=== PATIENT | female | born 2000 | race Two or more races ===

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

== ENCOUNTER 2023-01-21 08:34 | Emergency (ER) | payer OTHER ==
[2023-01-21 08:41] VITALS: RESP 16; BMI 26.2
[2023-01-21] MEDS ORDERED: ONDANSETRON 4 MG/2 ML VIAL IVPUSH ONE (08:55)
[2023-01-21] MEDS ORDERED: SODIUM CHLORIDE 0.9% 500 ML INFUS.BAG IV ONE (08:55)
[2023-01-21] MEDS ORDERED: FAMOTIDINE 20 MG/50 ML IVPB 20 MG/50 ML MG IVPB ONE ×2 (09:02→09:29)
[2023-01-21] MEDS ORDERED: ACETAMINOPHEN 1000 MG/100 ML BAG IVPB ONE (09:02)
[2023-01-21 09:28] LABS: BASO % 0.3 % (0-2.0); EOS % 0.1 % (0-4.5); HEMOGLOBIN 14.6 GM/dL (10.7-15.3); LYMPH % 8.6 % (8-40); MCH 33.2 pg (25.7-33.7); MCHC 35.6 g/dl (32.0-36.0); MEAN CELL VOLUME 93.4 fl (80-96); MEAN PLT VOLUME 8.4 fl (7.5-11.1); MONO % 2.4 % (3.8-10.2); NEUT % 88.6 % (42.8-82.8); PLATELET COUNT 438 10^3/uL (134-434); RBC 4.39 M/mm3 (3.60-5.2); RDW 13.6 % (11.6-15.6); WHITE BLOOD COUNT 18.7 K/mm3 (4.0-10.0)
[2023-01-21] MEDS ORDERED: ACETAMINOPHEN INJECTION 100 ML IVPB ONE (09:29)
[2023-01-21] MEDS ORDERED: ONDANSETRON 4 MG/2 ML VIAL ONE (09:29)
[2023-01-21] MEDS ORDERED: HALOPERIDOL LACTATE 5 MG/ML IM ONE ×2 (09:52→09:54)
[2023-01-21 09:59] LABS: CALCIUM 9.5 mg/dL (8.5-10.1)
[2023-01-21 10:00] LABS: ALBUMIN 4.6 g/dl (3.4-5.0)
[2023-01-21 10:04] LABS: BILIRUBIN,TOTAL 0.7 mg/dL (0.2-1); TOT PROT 8.2 g/dl (6.4-8.2)
[2023-01-21] MEDS ORDERED: diazePAM CARPU-JECT 10 MG/2 ML DISP.SYRIN IVPUSH ONE (10:17)
[2023-01-21] MEDS ORDERED: diazePAM CARPU-JECT 10 MG/2 ML DISP.SYRIN ONE (10:33)
[2023-01-21 10:41] VITALS: TEMP 98
[2023-01-21 11:21] LABS: URINE APPEARANCE CLEAR; URINE BILIRUBIN NEGATIVE (NEGATIVE); URINE COLOR YELLOW; URINE GLUCOSE (UA) NEGATIVE (NEGATIVE); URINE KETONE NEGATIVE (NEGATIVE); URINE LEUK ESTERASE NEGATIVE (NEGATIVE); URINE NITRITE NEGATIVE (NEGATIVE); URINE PROTEIN NEGATIVE (NEGATIVE); URINE UROBILINOGEN 0.2 mg/dL (0.2-1.0)
[2023-01-21 11:29] LABS: BLOOD UREA NITROGEN 10.6 mg/dL (7-18); CREATININE 0.6 mg/dL (0.55-1.3)
[2023-01-21 12:39] VITALS: BP 103/68; PULSE 74
== END 2023-01-21 12:43 | disposition home or self-care (01) ==
LOC: JER 08:34
PROC: 3E0333Z Introduction of Anti-inflammatory into Peripheral Vein, Percutaneous Approach (ICD-10-PCS; principal; 2023-01-21)
PROC: 3E033NZ Introduction of Analgesics, Hypnotics, Sedatives into Peripheral Vein, Percutaneous Approach (ICD-10-PCS; 2023-01-21)
PROC: 3E033GC Introduction of Other Therapeutic Substance into Peripheral Vein, Percutaneous Approach (ICD-10-PCS; 2023-01-21)
PROC: 3E033GC Introduction of Other Therapeutic Substance into Peripheral Vein, Percutaneous Approach (ICD-10-PCS; 2023-01-21)
PROC: 3E023NZ Introduction of Analgesics, Hypnotics, Sedatives into Muscle, Percutaneous Approach (ICD-10-PCS; 2023-01-21)
DX: R11.2 Nausea with vomiting, unspecified (principal); R10.84 Generalized abdominal pain
CPT/HCPCS: 36415; 80053; 81003; 83690; 84703; 85025; 87086; 99284-25

== ENCOUNTER 2023-08-04 19:48 | Emergency (ER) | payer OTHER ==
[2023-08-04 19:59] VITALS: BP 101/61; PULSE 69; RESP 18; TEMP 98.8; BMI 26.2
[2023-08-04] MEDS ORDERED: KETOROLAC TROMETHAMINE 30 MG/1 ML VIAL IM ONE (20:29)
[2023-08-04] MEDS ORDERED: ACETAMINOPHEN 500 MG TABLET (FP) PO ONE (20:29)
[2023-08-04] MEDS ORDERED: ACETAMINOPHEN 500 MG TABLET (FP) ONE (20:32)
[2023-08-04] MEDS ORDERED: KETOROLAC TROMETHAMINE 30 MG/1 ML VIAL ONE (20:32)
== END 2023-08-04 20:34 | disposition home or self-care (01) ==
LOC: JERFT 19:48
PROC: 3E0233Z Introduction of Anti-inflammatory into Muscle, Percutaneous Approach (ICD-10-PCS; principal; 2023-08-04)
DX: M54.2 Cervicalgia (principal); M62.838 Other muscle spasm
CPT/HCPCS: 99284-25

== ENCOUNTER 2024-04-24 12:57 | Emergency (ER) | payer OTHER ==
[2024-04-24 13:22] VITALS: RESP 18; TEMP 98.5; BMI 29.2
[2024-04-24] MEDS: LACTATED RINGERS SOLUTION 1000 ML INFUS.BAG IV ONE (13:53)
[2024-04-24 14:43] LABS: CHLORIDE 109 mmol/L (98-107); POTASSIUM 4.6 mmol/L (3.5-5.1); SODIUM 138 mmol/L (136-145)
[2024-04-24 14:45] LABS: ANION GAP 4 mmol/L (4-13); CO2 25 mmol/L (21-32); MAGNESIUM 2.1 mg/dL (1.8-2.4)
[2024-04-24 14:46] LABS: BLOOD UREA NITROGEN 13.2 mg/dL (7-18); CALCIUM 8.4 mg/dL (8.5-10.1); GLUCOSE,RANDOM 85 mg/dL (74-106)
[2024-04-24 14:48] LABS: CREATININE 0.6 mg/dL (0.55-1.3); SGOT/AST 10 U/L (15-37); SGPT/ALT 16 U/L (13-61)
[2024-04-24 14:50] LABS: TOT PROT 7.5 g/dl (6.4-8.2)
[2024-04-24 14:51] LABS: ALK PHOS 86 U/L (45-117); BASO % 0.8 % (0-2.0); EOS % 2.6 % (0-4.5); HEMATOCRIT 39.8 % (32.4-45.2); HEMOGLOBIN 14.5 GM/dL (10.7-15.3); LYMPH % 26.4 % (8-40); MCH 34.2 pg (25.7-33.7); MCHC 36.4 g/dl (32.0-36.0); MEAN PLT VOLUME 8.3 fl (7.5-11.1); MONO % 5.9 % (3.8-10.2); NEUT % 64.3 % (42.8-82.8); PLATELET COUNT 342 10^3/uL (134-434); RBC 4.24 M/mm3 (3.60-5.2); RDW 13.5 % (11.6-15.6); WHITE BLOOD COUNT 8.9 K/mm3 (4.0-10.0)
[2024-04-24 14:52] LABS: BILIRUBIN,TOTAL 0.7 mg/dL (0.2-1)
[2024-04-24 15:26] LABS: EPI CELLS 30 /uL (0-25.1); HYALINE CASTS 0 /uL (0-3.1); PH,URINE 6.5 (5.0-8.0); URINE APPEARANCE CLEAR; URINE BACTERIA 467 /uL (0-1359); URINE BILIRUBIN NEGATIVE (NEGATIVE); URINE COLOR YELLOW; URINE GLUCOSE (UA) NEGATIVE (NEGATIVE); URINE KETONE NEGATIVE (NEGATIVE); URINE LEUK ESTERASE 2+ (NEGATIVE); URINE NITRITE NEGATIVE (NEGATIVE); URINE PROTEIN NEGATIVE (NEGATIVE); URINE RBC 39 /uL (0-23.9); URINE UROBILINOGEN 0.2 mg/dL (0.2-1.0); URINE WBC 58 /uL (0-25.8)
[2024-04-24 15:32] LABS: PHENCYCLIDINE,URINE NEGATIVE (NEGATIVE)
[2024-04-24 15:33] LABS: COCAINE, UR NEGATIVE (NEGATIVE); METHADONE, UR NEGATIVE (NEGATIVE); OPIATES, URI NEGATIVE (NEGATIVE); URINE AMPHETAMINES NEGATIVE (NEGATIVE); URINE BENZODIAZEPINES NEGATIVE (NEGATIVE)
[2024-04-24 15:34] LABS: URINE BARBITURATES NEGATIVE (NEGATIVE)
[2024-04-24] MEDS: ACETAMINOPHEN 500 MG TABLET (FP) PO ONE (15:36)
[2024-04-24] MEDS: SODIUM CHLORIDE 0.9% 500 ML INFUS.BAG IV ONE (15:36)
[2024-04-24 16:08] VITALS: BP 102/57; PULSE 63
== END 2024-04-24 16:15 | disposition home or self-care (01) ==
LOC: JER 12:57
DX: R55 Syncope and collapse (principal); R11.10 Vomiting, unspecified; M79.601 Pain in right arm; R20.0 Anesthesia of skin
CPT/HCPCS: 36415; 80053; 80307; 81003; 82962; 83735; 84703; 85025; 86850; 86900; 86901; 87040; 87086; 93005; 93010; 99284-25